=== PATIENT | female | born 1990 | race Two or more races ===

== ENCOUNTER 2019-10-27 05:19 | Inpatient (IN) | payer OTHER ==
[~2019-10-27] VITALS: Ht 167.6 cm; Wt 61.7 kg
[2019-10-27] MEDS ORDERED: PRENATAL + DHA1 EAC1 PO (06:44)
== END 2019-10-29 13:50 | disposition home or self-care (01) | DRG 807 ==
LOC: LDR 05:19 → OB/GYN 05:19
PROVIDERS: ADMIT Obstetrics & Gynecology
PROC: 10E0XZZ Delivery of Products of Conception, External Approach (ICD-10-PCS; principal; 2019-10-27)
PROC: 10907ZC Drainage of Amniotic Fluid, Therapeutic from Products of Conception, Via Natural or Artificial Opening (ICD-10-PCS; 2019-10-27)
PROC: 3E033VJ Introduction of Other Hormone into Peripheral Vein, Percutaneous Approach (ICD-10-PCS; 2019-10-27)
PROC: 0W8NXZZ Division of Female Perineum, External Approach (ICD-10-PCS; 2019-10-27)
PROC: 4A1HXCZ Monitoring of Products of Conception, Cardiac Rate, External Approach (ICD-10-PCS; 2019-10-27)
DX: O71.4 Obstetric high vaginal laceration alone (principal); Z37.0 Single live birth; Z3A.39 39 weeks gestation of pregnancy